=== PATIENT | female | born 1975 | race Caucasian/White ===

== ENCOUNTER 2018-03-13 15:18 | Emergency (ER) | payer OTHER ==
[~2018-03-13] VITALS: Ht 157.5 cm; Wt 66.0 kg
[~2018-03-13 15:18] MED LIST: METO50CR PO; MULT-65 PO
[2018-03-13 15:42] VITALS: BP 167/77; PULSE 128; RESP 20; TEMP 99.1; O2SAT 99
[2018-03-13 16:13] VITALS: BP 149/88; PULSE 104; RESP 18; O2SAT 100
--- NOTE | 2018-03-13 16:33 | PD ---
HPI Chief Complaint: Pain: Acute or Chronic Time Seen by Provider: 15:57 Travel History International Travel<30 days: No Contact w/Intl Traveler<30days: No Traveled to known affect area: No History of Present Illness HPI 43-year-old female complains of left leg pain and swelling. Patient status post spinal fusion surgery [place]. Patient states that she is not having pain and cramping left lower leg for the past 2 days. Patient states that she has increasing swelling of the left lower leg also. Patient denies any chest pain or shortness of breath. Patient has history of tachycardia and on Bystolic. Patient also has history of hypertension and on losartan. Patient has been taking Flexeril and hydrocodone as needed for back pain. Patient denies any recent injury. Patient denies any fever chills. Patient denies any coughing congestion. Patient denies any history of DVT or PE. PFSH Past Medical History Cardiovascular Problems: Yes (TACHYCARDIA, HTN) Diminished Hearing: No Hypertension: Yes Immunizations Current: Yes ?: Not LMP: 03/13/18 Past Surgical History Abdominal Surgery: Yes (LT HERNIA) Appendectomy: Yes Gynecologic Surgery: Yes (RT OVARY TORTION) Tonsillectomy: Yes Family History Family Myocardial Infarction: Yes Social History Alcohol Use: Yes (RARELY) Tobacco Use: No Substance Use: No Allergies-Medications (Allergen,Severity, Reaction): Coded Allergies: clonazepam (Unverified Allergy, Severe, 06/29/17) HYPER diatrizoate meglumine (Unverified Allergy, Severe, THROAT SWELLING/HIVES, 06/29/17) wheat (Unverified Allergy, Severe, hives, 06/29/17) midazolam (Unverified Allergy, Mild, 06/29/17) HYPER Iodinated Contrast- Oral and IV Dye (Verified Allergy, Unknown, 03/13/18) peanut (Verified Allergy, Unknown, 03/13/18) tramadol (Verified Allergy, Unknown, 03/13/18) Uncoded Allergies: ANTIBIOTIC UNK (Allergy, Mild, 12/03/06) Reported Meds & Prescriptions Reported Meds & Active Scripts Active Metoprolol Succinate ER 50 mg (Metoprolol Succinate) 50 Mg Tab 1 Tab PO HS Reported Hydrocodone-Acetaminophen 5-325 mg Tab 1 Tab PO Q4H PRN Losartan (Losartan Potassium) 50 Mg Tab 50 Mg PO DAILY Bystolic (Nebivolol) 2.5 Mg Tab 2.5 Mg PO DAILY Multi-Vitamin Daily (Multivitamins) Daily Tab 1 Tab PO DAILY Review of Systems General / Constitutional: No: Fever Eyes: No: Visual changes HENT: No: Headaches Cardiovascular: No: Chest Pain or Discomfort Respiratory: No: Shortness of Breath Gastrointestinal: No: Abdominal Pain Genitourinary: No: Dysuria Musculoskeletal: Positive: Edema, Pain Skin: No Rash Neurologic: No: Weakness Psychiatric: No: Depression Endocrine: No: Polydipsia Hematologic/Lymphatic: No: Easy Bruising Physical Exam Narrative GENERAL: Well-nourished, well-developed patient. SKIN: Focused skin assessment warm/dry. HEAD: Normocephalic. EYES: No scleral icterus. No injection or drainage. NECK: Supple, trachea midline. No JVD or lymphadenopathy. CARDIOVASCULAR: Regular rate and rhythm without murmurs, gallops, or rubs. RESPIRATORY: Breath sounds equal bilaterally. No accessory muscle use. GASTROINTESTINAL: Abdomen soft, non-tender, nondistended. MUSCULOSKELETAL: No cyanosis, or edema. BACK: Nontender without obvious deformity. No CVA tenderness. Patient has soft tissue swelling tenderness diffuse over the left lower extremity. No redness no heat noted. Full range of motion of the toes. Data Data Last Documented VS Vital Signs Date Time Temp Pulse Resp B/P (MAP) Pulse Ox O2 Delivery O2 Flow Rate FiO2 03/13/18 16:38 18 98 Room Air 03/13/18 16:13 104 03/13/18 15:42 99.1 Orders Orders Electrocardiogram (03/13/18 16:25) Complete Blood Count With Diff (03/13/18 16:25) Comprehensive Metabolic Panel (03/13/18 16:25) Prothrombin Time / Inr (Pt) (03/13/18 16:25) Act Partial Throm Time (Ptt) (03/13/18 16:25) D-Dimer (03/13/18 16:25) Iv Access Insert/Monitor (03/13/18 16:25) Ecg Monitoring (03/13/18 16:25) Oximetry (03/13/18 16:25) Us Leg Venous Doppler (03/13/18 16:25) Labs Laboratory Tests Test 03/13/18 16:32 White Blood Count 8.1 TH/MM3 Red Blood Count 3.86 MIL/MM3 Hemoglobin 11.2 GM/DL Hematocrit 33.1 % Mean Corpuscular Volume 85.8 FL Mean Corpuscular Hemoglobin 28.9 PG Mean Corpuscular Hemoglobin Concent 33.7 % Red Cell Distribution Width 13.7 % Platelet Count 234 TH/MM3 Mean Platelet Volume 8.7 FL Neutrophils (%) (Auto) 68.3 % Lymphocytes (%) (Auto) 23.4 % Monocytes (%) (Auto) 7.0 % Eosinophils (%) (Auto) 0.7 % Basophils (%) (Auto) 0.6 % Neutrophils # (Auto) 5.5 TH/MM3 Lymphocytes # (Auto) 1.9 TH/MM3 Monocytes # (Auto) 0.6 TH/MM3 Eosinophils # (Auto) 0.1 TH/MM3 Basophils # (Auto) 0.0 TH/MM3 CBC Comment DIFF FINAL Differential Comment Prothrombin Time 10.2 SEC Prothromb Time International Ratio 1.0 RATIO Activated Partial Thromboplast Time 27.7 SEC D-Dimer Quantitative (PE/DVT) 0.63 MG/L FEU Blood Urea Nitrogen 13 MG/DL Creatinine 0.69 MG/DL Random Glucose 94 MG/DL Total Protein 7.7 GM/DL Albumin 4.1 GM/DL Calcium Level 9.0 MG/DL Alkaline Phosphatase 47 U/L Aspartate Amino Transf (AST/SGOT) 20 U/L Alanine Aminotransferase (ALT/SGPT) 25 U/L Total Bilirubin 0.2 MG/DL Sodium Level 140 MEQ/L Potassium Level 3.5 MEQ/L Chloride Level 103 MEQ/L Carbon Dioxide Level 29.9 MEQ/L Anion Gap 7 MEQ/L Estimat Glomerular Filtration Rate 93 ML/MIN [facility] Medical Decision Making Medical Screen Exam Complete: Yes Emergency Medical Condition: Yes Interpretation(s) 1749 PM. Doppler study left lower extremity negative for DVT. CBC within normal limits. CMP within normal limits. D-dimer 0.63. Differential Diagnosis Differential diagnosis including dependent edema, DVT, cellulitis. Narrative Course 43-year-old female with pain swelling left lower extremity. Status post spinal fusion surgery last month. Diagnosis Primary Impression: Muscle strain of left lower leg Qualified Codes: S86.912A - Strain of unspecified muscle(s) and tendon(s) at lower leg level, left leg, initial encounter Patient Instructions: General Instructions Additional Instructions: Advil Tylenol for pain. Follow-up with personal physician. Return in 1 week for repeat ultrasound if persistent symptoms. Med/Other Pt SpecificInfo: No Change to Meds Disposition: 01 DISCHARGE HOME Condition: Stable Kailash España MD Mar 13, 2018 16:33
[2018-03-13 16:38] VITALS: RESP 18; O2SAT 98
[2018-03-13] MEDS ORDERED: LOSA50TA PO (16:38)
[2018-03-13] MEDS ORDERED: BYST2.5T2 PO (16:38)
[2018-03-13] MEDS ORDERED: HYDR-3516 PO (16:38)
[2018-03-13 17:03] LABS: AUTOMATED NEUTROPHIL # 5.5 TH/MM3 (1.8-7.7); BASOPHIL % 0.6 % (0.0-2.0); EOSINOPHIL # 0.1 TH/MM3 (0-0.4); EOSINOPHIL % 0.7 % (0.0-4.0); HEMATOCRIT 33.1 % (35.0-46.0); HEMOGLOBIN 11.2 GM/DL (11.6-15.3); LYMPH % 23.4 % (9.0-44.0); LYMPHOCYTE # 1.9 TH/MM3 (1.0-4.8); MEAN CELL VOLUME 85.8 FL (80.0-100.0); MEAN CORPUSCULAR HEMOGLOBIN 28.9 PG (27.0-34.0); MEAN CORPUSCULAR HGB CONC 33.7 % (32.0-36.0); MEAN PLATELET VOLUME 8.7 FL (7.0-11.0); MONOCYTE # 0.6 TH/MM3 (0-0.9); NEUT % 68.3 % (16.0-70.0); PLATELET COUNT 234 TH/MM3 (150-450); RED BLOOD COUNT 3.86 MIL/MM3 (4.00-5.30); RED CELL DISTRIBUTION WIDTH 13.7 % (11.6-17.2); WHITE BLOOD COUNT 8.1 TH/MM3 (4.0-11.0)
[2018-03-13 17:17] LABS: PROTHROMBIN TIME - PATIENT 10.2 SEC (9.8-11.6)
[2018-03-13 17:20] LABS: D-DIMER 0.63 MG/L FEU (0.00-0.50)
[2018-03-13 17:40] LABS: ALBUMIN 4.1 GM/DL (3.4-5.0); ALT (GPT) 25 U/L (10-53); AST (GOT) 20 U/L (15-37); BICARBONATE 29.9 MEQ/L (21.0-32.0); BLOOD UREA NITROGEN 13 MG/DL (7-18); CHLORIDE 103 MEQ/L (98-107); CREATININE 0.69 MG/DL (0.50-1.00); GLOMERULAR FILTRATION RATE 93 ML/MIN (>89); GLUCOSE,RANDOM 94 MG/DL (74-106); SODIUM (NA) 140 MEQ/L (136-145)
[2018-03-13 17:42] LABS: ALKALINE PHOSPHATASE 47 U/L (45-117); TOTAL BILIRUBIN ADULT 0.2 MG/DL (0.2-1.0); TOTAL PROTEIN 7.7 GM/DL (6.4-8.2)
--- NOTE | 2018-03-13 17:44 | RADRPT ---
EXAM DATE/TIME: 03/13/2018 16:50 [place] COMPARISON: No previous studies available for comparison. INDICATIONS : Left leg swelling. MEDICAL HISTORY : Hypertension. Left hernia. Right ovary torsion. SURGICAL HISTORY : Appendectomy. Tonsillectomy. ENCOUNTER: Initial ACUITY: 1 day PAIN SCORE: 4/10 LOCATION: Left leg. TECHNIQUE: Venous ultrasound of the leg was performed from the inguinal ligament to the proximal calf. Real-caridad e, color Doppler and spectral tracing, compression and augmentation techniques were used. FINDINGS: There is normal compressibility of the deep venous system from the inguinal region to the proximal ca lf. No echogenic clot is seen in the lumen of the common femoral, femoral, popliteal, and posterior tibial veins. There is a normal response of the venous system to proximal and distal augmentation an d respiration. CONCLUSION: No DVT. Marcus Arndt MD on March 13, 2018 at 17:41 Board Certified Radiologist. This report was verified electronically.
--- NOTE | 2018-03-14 21:19 | EKG ---
Date Performed: 03/13/2018 Time Performed: 16:01:20 PTAGE: 43 years EKG: SINUS TACHYCARDIA POSSIBLE LEFT ATRIAL ENLARGEMENT ABNORMAL RHYTHM ECG PREVIOUS TRACING : 08/25/2014 03.10 Compared to previous tracing, SINUS TACHYCARDIA IS NEW DOCTOR: Reese Cheng Interpretating Date/Time 03/14/2018 21:18:25
== END 2018-03-13 18:49 | disposition home or self-care (01) ==
LOC: NEPC 15:18
DX: S86.912A Strain of unspecified muscle(s) and tendon(s) at lower leg level, left leg, initial encounter (principal); X58.XXXA Exposure to other specified factors, initial encounter; R94.31 Abnormal electrocardiogram [ECG] [EKG]; I10 Essential (primary) hypertension; R00.0 Tachycardia, unspecified
CPT/HCPCS: 80053; 85025; 85379; 85610; 85730; 93005; 93971; 99285